=== PATIENT | female | born 1990 | race Caucasian/White ===

== ENCOUNTER 2018-03-12 04:25 | Emergency (ER) | payer OTHER ==
[2018-03-12] MEDS ORDERED: ONDANSETRON 4 MG TAB.RAPDIS PO ONE (04:46)
--- NOTE | 2018-03-12 05:58 | ER Document Report ---
ED Burn/Smoke/Toxic Fumes - General Chief Complaint: Carbon Monoxide Exposure Stated Complaint: POSSIBLE CO EXPOSURE Time Seen by Provider: 03/12/18 04:54 Notes: Patient is a 27-year-old female presenting to the emergency department with possible carbon monoxide exposure. Patient was an occupant at the [employer] when around 1 AM she woke up complaining of a headache and nausea. Patient states she vomited x3. Patient then stated she heard knocking on the door and realized it was the fire department telling her to evacuate the building. Patient is currently complaining of a headache and generalized weakness. Patient states she has not vomited since treatment via EMS. EMS gave the patient 4 mg of Zofran. Past medical history: None Medications: None Allergies: None Patient denies cigarette smoke, illicit drug use, EtOH use. TRAVEL OUTSIDE OF THE [place] IN LAST 30 DAYS: No - Related Data Allergies/Adverse Reactions: No Known Drug Allergies Allergy (Verified 03/12/18 06:43) Past Medical History - General Information source: Patient - Social History Smoking Status: Never Smoker Lives with: Family Family History: Reviewed & Not Pertinent Review of Systems - Review of Systems Constitutional: No symptoms reported EENT: No symptoms reported Cardiovascular: No symptoms reported Respiratory: No symptoms reported Gastrointestinal: See HPI Genitourinary: No symptoms reported Female Genitourinary: No symptoms reported Musculoskeletal: No symptoms reported Skin: No symptoms reported Hematologic/Lymphatic: No symptoms reported Neurological/Psychological: See HPI Physical Exam - Vital signs Vitals: Temp Pulse Resp BP 98.3 F 67 16 115/65 03/12/18 05:12 03/12/18 05:12 03/12/18 05:12 03/12/18 05:12 - Notes Notes: GENERAL: Alert, interacts well. No acute distress. HEAD: Normocephalic, atraumatic. EYES: Pupils equal, round, and reactive to light. Extraocular movements intact. ENT: Oral mucosa moist, tongue midline. NECK: Full range of motion. Supple. Trachea midline. LUNGS: Clear to auscultation bilaterally, no wheezes, rales, or rhonchi. No respiratory distress. HEART: Regular rate and rhythm. No murmur ABDOMEN: Soft, non-tender. Non-distended. Bowel sounds present in all 4 quadrants. EXTREMITIES: Moves all 4 extremities spontaneously. No edema, normal radial and dorsalis pedis pulses bilaterally. No cyanosis. BACK: no cervical, thoracic, lumbar midline tenderness. No saddle anesthesia, normal distal neurovascular exam. NEUROLOGICAL: Alert and oriented x3. Normal speech. cranial nerves II through XII grossly intact. PSYCH: Normal affect, normal mood. SKIN: Warm, dry, normal turgor. No rashes or lesions noted. Course - Re-evaluation Re-evalutation: 03/12/18 06:59 Per nursing staff patient's carbon monoxide is down to 4 via finger monitor. Patient is no longer complaining of weakness, headache, nausea. HCG negative. - Vital Signs Vital signs: Temp Pulse Resp BP Pulse Ox 98.3 F 67 16 115/65 03/12/18 05:12 03/12/18 05:12 03/12/18 05:12 03/12/18 05:12 - Laboratory Laboratory results interpreted by me: 03/12/18 04:49 Carboxyhemoglobin 10.3 H Discharge - Discharge Clinical Impression: Carbon monoxide exposure Condition: Stable Disposition: HOME, SELF-CARE Instructions: Carbon Monoxide ([facility]) Additional Instructions: You should return to the emergency room for any other worsening symptoms.
[2018-03-12 07:51] VITALS: BP 122/58
== END 2018-03-12 08:21 | disposition home or self-care (01) ==
LOC: ER 04:25
DX: T58.91XA Toxic effect of carbon monoxide from unspecified source, accidental (unintentional), initial encounter (principal); R51 Headache; R11.2 Nausea with vomiting, unspecified; R53.1 Weakness; Y92.59 Other trade areas as the place of occurrence of the external cause
CPT/HCPCS: 36415; 82375; 84703; 99284